=== PATIENT | male | born 1965 | race Caucasian/White ===

== ENCOUNTER 2021-07-04 11:23 | Emergency (ER) | payer MEDICAID ==
[~2021-07-04] VITALS: Ht 170.2 cm; Wt 73.0 kg
[2021-07-04 12:42] LABS: BASOPHILS % 0.4 % (0.0-2.0); EOSINOPHILS % 2.4 % (0.0-5.0); HEMOGLOBIN. 15.4 g/dL (14.0-18.0); LYMPHOCYTES % 31.8 % (20.0-50.0); MEAN CORPUSCULAR HEMOGLOBIN 32.9 pg (28.0-32.0); MEAN PLATELET VOLUME 9.1 fl (7.4-10.4); MONOCYTES % 11.7 % (2.0-8.0); NEUTROPHILS % 53.7 % (40.0-76.0); PLATELET 179 x1000/uL (130-400); RED BLOOD CELL COUNT 4.68 mill/uL (4.7-6.1); RED CELL DISTRIBUTION WIDTH 13.4 % (11.6-14.6)
[2021-07-04 12:48] LABS: CHLORIDE 110 mEq/L (98-107)
[2021-07-04 12:50] LABS: PROTHROMBIN TIME 10.6 sec (9.6-11.0)
[2021-07-04 13:13] VITALS: BP 159/88
== END 2021-07-04 13:25 | disposition home or self-care (01) ==
LOC: ER 12:35
DX: K62.5 Hemorrhage of anus and rectum (principal); K64.4 Residual hemorrhoidal skin tags; I10 Essential (primary) hypertension
CPT/HCPCS: 36415; 80053; 85025; 99283

== ENCOUNTER 2021-07-07 10:16 | Emergency (ER) | payer MEDICAID ==
[~2021-07-07] VITALS: Ht 167.6 cm; Wt 74.0 kg
[2021-07-07 10:19] VITALS: BP 156/90
[2021-07-07] MEDS ORDERED: HC A30CR11 RC (10:39)
[2021-07-07] MEDS ORDERED: DOCU-138 PO (10:39)
== END 2021-07-07 10:52 | disposition home or self-care (01) ==
LOC: ER 10:16
DX: K64.4 Residual hemorrhoidal skin tags (principal)
CPT/HCPCS: 99281; 99282